=== PATIENT | female | born 1995 | race African-American/Black ===

== ENCOUNTER → 2020-08-27 | Emergency (ER) | payer SELFPAY ==
[~2020-08-27] MED LIST: BENADRYL25 M1 PO; FAMOTIDINE20 MG PO; PREDNISONE20 MG PO
== END | disposition left against medical advice (07) ==
LOC: FSED 21:28
DX: T78.40XA Allergy, unspecified, initial encounter (principal)

== ENCOUNTER 2020-08-29 00:09 | Emergency (ER) | payer OTHER ==
[~2020-08-29] VITALS: Ht 165.1 cm; Wt 63.0 kg
[2020-08-29] MEDS ORDERED: PREDNISONE20 MG PO (00:41)
[2020-08-29] MEDS ORDERED: BENADRYL25 M1 PO (00:41)
[2020-08-29] MEDS ORDERED: FAMOTIDINE20 MG PO (00:41)
[2020-08-29 00:50] VITALS: BP 107/69
== END 2020-08-29 00:50 | disposition home or self-care (01) ==
LOC: FSED 00:28
DX: T78.40XA Allergy, unspecified, initial encounter (principal)
CPT/HCPCS: 99282

== ENCOUNTER 2021-03-13 10:57 | Emergency (ER) | payer BC, OTHER ==
[~2021-03-13] VITALS: Ht 165.1 cm; Wt 57.6 kg
[2021-03-13] MEDS ORDERED: KETOROLAC TROMETHAMINE 30 MG/ML VIAL IM STA (11:26)
[2021-03-13] MEDS ORDERED: METHOCARBAMOL750 MG PO (11:28)
[2021-03-13] MEDS ORDERED: IBUPROFEN800 MG PO (11:28)
[2021-03-13] MEDS ORDERED: KETOROLAC TROMETHAMINE 60 MG/2 ML VIAL ONE (11:36)
[2021-03-13] MEDS ORDERED: KETOROLAC TROMETHAMINE 60 MG/2 ML VIAL IM ONE (12:00)
== END 2021-03-13 11:39 | disposition home or self-care (01) ==
LOC: FSED 11:02
DX: M62.838 Other muscle spasm (principal); M62.830 Muscle spasm of back
CPT/HCPCS: 99282; J1885